=== PATIENT | male | born 1960 | race Caucasian/White ===

== ENCOUNTER 2021-07-17 17:37 | Emergency (ER) | payer SELFPAY ==
[~2021-07-17] VITALS: Ht 177.8 cm; Wt 86.2 kg
[~2021-07-17 17:37] MED LIST: ALPR1T PO; ASP325T PO; ASPI-84 PO; ATOR10TA PO; ATOR40TA PO; CITA20TA4 PO; CLON1TAB2 PO; CLON2TAB3 PO; CLOP75TA PO; DICL50TA6 PO; HYDR-2890 PO; HYDR50TA76 PO; IBUP-15 PO; METO25TA2 PO; TEMA30CA PO; TRM50T PO; [UNRECOGNIZED DRUG - CODE] PO
[2021-07-17] MEDS ORDERED: NS IV 1000 ML 1,000 ML IV SCH (19:00)
--- NOTE | 2021-07-17 19:04 | ED General ---
General Chief Complaint: General Problems/Pain Stated Complaint: WEAK, DIZZY,ITCHING, BACK PAIN, HAS STOPED DRINKIN History of Present Illness Date Seen by Provider: Jul 17, 2021 Time Seen by Provider: 18:30 Initial Comments 61 year old male, moved here from [place] 2 weeks ago. He was told in [place] that he had renal failure, so he decided to move back to [place] to be near family. No PCP here. Drank 1 point of bourbon daily for the last 2-3 years, stopped abruptly 07/09/21. Has not gone to rehab or had medical care to assist with withdrawals. He also reports no BM in 3 days, denies abdominal pain. Main complaint is vertigo, syncopal events, falls, neck pain without radicular complaints in arms. Unsure of his last tetanus. Superficial abrasion to right ear, from fall 1 week ago. No headache, nausea, vomiting, seizure, or other complaints. Has received the Moderna Vaccines and Booster, and flu shot. Timing/Duration: 1 Week Severity: Mild Associated Systoms: No Chest Pain, No Cough, No Diaphoresis, No Fever/Chills, No Headaches, No Loss of Appetite; Malaise; No Nausea/Vomiting, No Rash, No Seizure, No Shortness of Air; Syncope, Weakness Allergies and Home Medications Allergies Coded Allergies: No Known Drug Allergies (Unverified , 03/12/11) Patient Home Medication List Home Medication List Reviewed: Yes Atorvastatin Calcium (Lipitor 40MG) 40 Mg Tablet, 40 MG PO DAILY, (Reported) Entered as Reported by: TYRON ACUÑA on 10/13/11 170 Clonazepam (Clonazepam) 2 Mg Tablet, 1 EACH PO TID, (Reported) Entered as Reported by: CHERIE CUEVAS on 05/19/12 173 Clopidogrel Bisulfate (Plavix 75 Mg) 75 Mg Tablet, 75 MG PO DAILY, (Reported) Entered as Reported by: TYRON ACUÑA on 10/13/11 170 Diclofenac Sodium (Diclofenac Sodium) 50 Mg Tablet.dr, 50 MG PO BID, (Reported) Entered as Reported by: TYRON ACUÑA on 10/13/11 170 Hydrocodone Bit/Acetaminophen (Hydrocodon-Acetaminophn 10-325) 1 Each Tablet, 1 EACH PO NEEDED Prescribed by: NELLI ELMORE on 05/19/12 1842 Levodopa/Carbidopa (Sinemet 10/) 1 Ea Tab, 1 TAB PO HS, (Reported) Entered as Reported by: TYRON ACUÑA on 10/13/11 1706 Review of Systems Review of Systems Constitutional: see HPI, weakness EENTM: see HPI, no symptoms reported Respiratory: no symptoms reported, see HPI; No cough Cardiovascular: no symptoms reported, see HPI; No chest pain Gastrointestinal: no symptoms reported, see HPI Genitourinary: no symptoms reported, see HPI Musculoskeletal: see HPI, neck pain Skin: no symptoms reported, see HPI All Other Systems Reviewed Negative Unless Noted: Yes Past Jiihuwd-Ytiejc-Qyjckz Hx Past Medical History Reproductive Disorders: No Family Medical History Reviewed Nursing Family Hx Physical Exam Vital Signs Vital Signs - First Documented 07/17/21 18:25 Temp 36.4 Pulse 57 Resp 20 B/P (MAP) 167/82 (110) Pulse Ox 100 O2 Delivery Room Air Capillary Refill : Height, Weight, BMI Height: '" Weight: lbs. oz. kg; BMI Method:Stated General Appearance: No Apparent Distress, WD/WN Eyes: Bilateral Eye Normal Inspection, Bilateral Eye PERRL, Bilateral Eye EOMI HEENT: PERRL/EOMI, TMs Normal, Normal ENT Inspection, Pharynx Normal, Other (superficial abrasian to left ear, no active blooding, discharge or pain. 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 Norm as Tested Skin: Normal Color, Warm/Dry Progress/Results/Core Measures Suspected Sepsis SIRS Temperature: Pulse: Respiratory Rate: Laboratory Tests 07/17/21 18:40: White Blood Count 8.5 Blood Pressure / Mean: Laboratory Tests 07/17/21 18:40: Creatinine 1.08, Platelet Count 333, Total Bilirubin 0.6 Results/Orders Lab Results Laboratory Tests Test 07/17/21 18:40 07/17/21 19:18 Range/Units White Blood Count 8.5 4.3-11.0 10^3/uL Red Blood Count 4.45 4.30-5.52 10^6/uL Hemoglobin 14.2 13.3-17.7 g/dL Hematocrit 40 40-54 % Mean Corpuscular Volume 91 80-99 fL Mean Corpuscular Hemoglobin 32 25-34 pg Mean Corpuscular Hemoglobin Concent 35 32-36 g/dL Red Cell Distribution Width 12.2 10.0-14.5 % Platelet Count 333 130-400 10^3/uL Mean Platelet Volume 10.1 9.0-12.2 fL Immature Granulocyte % (Auto) 0 % Neutrophils (%) (Auto) 51 42-75 % Lymphocytes (%) (Auto) 30 12-44 % Monocytes (%) (Auto) 11 0-12 % Eosinophils (%) (Auto) 8 0-10 % Basophils (%) (Auto) 0 0-10 % Neutrophils # (Auto) 4.3 1.8-7.8 10^3/uL Lymphocytes # (Auto) 2.6 1.0-4.0 10^3/uL Monocytes # (Auto) 0.9 0.0-1.0 10^3/uL Eosinophils # (Auto) 0.7 H 0.0-0.3 10^3/uL Basophils # (Auto) 0.0 0.0-0.1 10^3/uL Immature Granulocyte # (Auto) 0.0 0.0-0.1 10^3/uL Sodium Level 138 135-145 MMOL/L Potassium Level 3.0 L 3.6-5.0 MMOL/L Chloride Level 102 98-107 MMOL/L Carbon Dioxide Level 23 21-32 MMOL/L Anion Gap 13 5-14 MMOL/L Blood Urea Nitrogen 12 7-18 MG/DL Creatinine 1.08 0.60-1.30 MG/DL Estimat Glomerular Filtration Rate 78 BUN/Creatinine Ratio 11 Glucose Level 117 H 70-105 MG/DL Calcium Level 9.7 8.5-10.1 MG/DL Corrected Calcium 9.5 8.5-10.1 MG/DL Total Bilirubin 0.6 0.1-1.0 MG/DL Aspartate Amino Transf (AST/SGOT) 38 H 5-34 U/L Alanine Aminotransferase (ALT/SGPT) 55 0-55 U/L Alkaline Phosphatase 114 40-136 U/L Total Protein 7.7 6.4-8.2 GM/DL Albumin 4.2 3.2-4.5 GM/DL Serum Alcohol < 10 <10 MG/DL Urine Color YELLOW Urine Clarity CLEAR Urine pH 6.0 5-9 Urine Specific [place] 1.020 1.016-1.022 Urine Protein NEGATIVE NEGATIVE Urine Glucose (UA) NEGATIVE NEGATIVE Urine Ketones NEGATIVE NEGATIVE Urine Nitrite NEGATIVE NEGATIVE Urine Bilirubin NEGATIVE NEGATIVE Urine Urobilinogen 1.0 < = 1.0 MG/DL Urine Leukocyte Esterase NEGATIVE NEGATIVE Urine RBC (Auto) NEGATIVE NEGATIVE Urine RBC NONE /HPF Urine WBC 0-2 /HPF Urine Crystals PRESENT H /LPF Urine Amorphous Sediment RARE KEVAN URATES H /LPF Urine Bacteria TRACE /HPF Urine Casts NONE /LPF Urine Mucus MODERATE H /LPF Urine Culture Indicated NO Urine Opiates Screen NEGATIVE NEGATIVE Urine Oxycodone Screen NEGATIVE NEGATIVE Urine Methadone Screen NEGATIVE NEGATIVE Urine Propoxyphene Screen NEGATIVE NEGATIVE Urine Barbiturates Screen POSITIVE H NEGATIVE Ur Tricyclic Antidepressants Screen NEGATIVE NEGATIVE Urine Phencyclidine Screen NEGATIVE NEGATIVE Urine Amphetamines Screen POSITIVE H NEGATIVE Urine Methamphetamines Screen POSITIVE H NEGATIVE Urine Benzodiazepines Screen NEGATIVE NEGATIVE Urine Cocaine Screen NEGATIVE NEGATIVE Urine Cannabinoids Screen POSITIVE H NEGATIVE My Orders Orders - 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 Cbc With Automated Diff (07/17/21 18:43) Comprehensive Metabolic Panel (07/17/21 18:43) Ua Culture If Indicated (07/17/21 18:43) Ct Head/Cervical Spine Wo (07/17/21 18:56) Alcohol (07/17/21 18:56) Drug Screen Stat (Urine) (07/17/21 18:56) Ed Iv/Invasive Line Start (07/17/21 18:56) Ns Iv 1000 Ml (Sodium Chloride 0.9%) (07/17/21 19:00) Ekg Tracing (07/17/21 19:08) Dipht,Pertuss(Acell),Tet Adult (Boostrix (07/17/21 19:30) Potassium Chloride (Tablet) (Klor Con Ta (07/17/21 19:53) Medications Given in ED Current Medications Medications Dose Ordered Sig/Papito Route Start Time Stop Time Status Last Admin Dose Admin Diphtheria/ Tetanus/Acell Pertussis 0.5 ml ONCE ONCE IM 07/17/21 19:30 07/17/21 19:31 DC 07/17/21 20:25 0.5 ML Vital Signs/I&O 07/17/21 07/17/21 18:25 20:32 Temp 36.4 Pulse 57 59 Resp 20 20 B/P (MAP) 167/82 (110) 148/80 Pulse Ox 100 100 O2 Delivery Room Air Room Air Capillary Refill : ECG Initial ECG Impression Date: Jul 17, 2021 Initial ECG Impression Time: 19:07 Initial ECG Rate: 53 Initial ECG Rhythm: Normal Sinus Initial ECG Intervals: Normal Initial ECG Intervals GA 196, QRSD 97, QT 480, QTc 451 [place] P 48, QRS 7, T Initial ECG Impression: Normal Diagnostic Imaging Diagonstic Imaging: CT Plain Films/CT/US/NM/MRI: c-spine, head Comments NAME: [facility] REC#: [id number] PT STATUS: REG ER : 1960 PHYSICIAN: MYA MALLOY ADMIT DATE: 07/17/21/ER Draft Date of Exam:07/17/21 CT HEAD/CERVICAL SPINE WO PROCEDURE: CT head and CT cervical spine without contrast. TECHNIQUE: Multiple contiguous axial images were obtained through the brain and cervical spine without the use of intravenous contrast. Sagittal and coronal reformations through the cervical spine were then performed. Auto Exposure Controls were utilized during the CT exam to meet ALARA standards for radiation dose reduction. INDICATION: Fall, head and neck injury, headache. COMPARISON: 05/19/2012 CT HEAD: The ventricles are normal in size, shape and position. There is no midline shift or mass effect. There is no hemorrhage or evidence of acute ischemia. No extra-axial fluid collection or mass is seen. There was no skull fracture. The paranasal sinuses and mastoids are clear. IMPRESSION: 1. Negative CT head CT CERVICAL SPINE: Alignment is normal. There is no subluxation or fracture. Moderate degenerative changes are present. The central canal is patent. The soft tissues are unremarkable. IMPRESSION: 1. No traumatic malalignment or fracture. Dictated on workstation # [id number] Reviewed: Reviewed by Me Departure Impression Primary Impression: Fall Qualified Codes: W19.XXXA - Unspecified fall, initial encounter Additional Impression: Alcohol withdrawal Qualified Codes: F10.239 - Alcohol dependence with withdrawal, unspecified Disposition: HOME, SELF-CARE Condition: Improved Departure-Patient Inst. Decision time for Depature: 20:15 Referrals: RANDEE HODGES MD (PCP) Primary Care Physician [facility]/TOM (Family) Primary Care Physician Patient Instructions: Alcohol Withdrawal (DC) Add. Discharge Instructions: Set up appointment with Dr. Brewer at [facility]. Continue to increase hydration with Gatorade and water. Eat 1 banana daily. Use cane for ambulation to prevent falls. Consider going to AA, local meetings daily. [facility] has a daily meeting. Return to the emergency department for new, health problems. All discharge instructions reviewed with patient and/or family. Voiced understanding. MYA MALLOY Jul 17, 2021 19:04
[2021-07-17 19:13] LABS: BASOPHILS % (AUTO) 0 % (0-10); EOSINOPHILS # (AUTO) 0.7 10^3/uL (0.0-0.3); EOSINOPHILS % (AUTO) 8 % (0-10); HEMATOCRIT 40 % (40-54); HEMOGLOBIN 14.2 g/dL (13.3-17.7); LYMPHOCYTES # (AUTO) 2.6 10^3/uL (1.0-4.0); LYMPHOCYTES % (AUTO) 30 % (12-44); MEAN CORPUSCULAR HEMOGLOBIN 32 pg (25-34); MEAN CORPUSCULAR HGB CONC 35 g/dL (32-36); MEAN CORPUSCULAR VOLUME 91 fL (80-99); MEAN PLATELET VOLUME 10.1 fL (9.0-12.2); MONOCYTES # (AUTO) 0.9 10^3/uL (0.0-1.0); MONOCYTES % (AUTO) 11 % (0-12); NEUTROPHILS # (AUTO) 4.3 10^3/uL (1.8-7.8); NEUTROPHILS % (AUTO) 51 % (42-75); PLATELET COUNT 333 10^3/uL (130-400); WHITE BLOOD COUNT 8.5 10^3/uL (4.3-11.0)
[2021-07-17 19:14] LABS: ALBUMIN 4.2 GM/DL (3.2-4.5)
[2021-07-17 19:15] LABS: CALCIUM 9.7 MG/DL (8.5-10.1)
[2021-07-17 19:16] LABS: TOTAL PROTEIN 7.7 GM/DL (6.4-8.2)
--- NOTE | 2021-07-17 19:16 | Diagnostic Imaging Report ---
PROCEDURE: CT head and CT cervical spine without contrast. TECHNIQUE: Multiple contiguous axial images were obtained through the brain and cervical spine without the use of intravenous contrast. Sagittal and coronal reformations through the cervical spine were then performed. Auto Exposure Controls were utilized during the CT exam to meet ALARA standards for radiation dose reduction. INDICATION: Fall, head and neck injury, headache. COMPARISON: 05/19/2012 CT HEAD: The ventricles are normal in size, shape and position. There is no midline shift or mass effect. There is no hemorrhage or evidence of acute ischemia. No extra-axial fluid collection or mass is seen. There was no skull fracture. The paranasal sinuses and mastoids are clear. IMPRESSION: 1. Negative CT head CT CERVICAL SPINE: Alignment is normal. There is no subluxation or fracture. Moderate degenerative changes are present. The central canal is patent. The soft tissues are unremarkable. IMPRESSION: 1. No traumatic malalignment or fracture. Dictated by: Dictated on workstation # [id number]
[2021-07-17 19:18] LABS: BILIRUBIN,TOTAL 0.6 MG/DL (0.1-1.0)
[2021-07-17 19:20] LABS: CREATININE SERUM 1.08 MG/DL (0.60-1.30)
[2021-07-17 19:22] LABS: BILIRUBIN,URINE NEGATIVE (NEGATIVE); CLARITY,URINE CLEAR; COLOR,URINE YELLOW; GLUCOSE, URINE (UA) NEGATIVE (NEGATIVE); KETONES,URINE NEGATIVE (NEGATIVE); LEUKOCYTE ESTERASE ,URINE NEGATIVE (NEGATIVE); NITRITE,URINE NEGATIVE (NEGATIVE); PROTEIN,URINE NEGATIVE (NEGATIVE)
[2021-07-17] MEDS ORDERED: TETANUS,DIPTH,PERTUSS P/F (BOOSTRIX) 0.5 ML VIAL IM ONE (19:30)
[2021-07-17 19:51] LABS: AMORPHOUS SEDIMENT,UR RARE AMOR URATES /LPF; BACTERIA,URINE TRACE /HPF; WBC,URINE 0-2 /HPF
[2021-07-17] MEDS ORDERED: KCL 10 MEQ TAB (MICRO K) PO STA (19:53)
[2021-07-17 20:00] LABS: AMPHETAMINE SCREEN, URINE POSITIVE (NEGATIVE); BARBITURATE SCREEN URINE POSITIVE (NEGATIVE); BENZODIAZEPINES SCREEN URINE NEGATIVE (NEGATIVE); CANNABINOID SCREEN, URINE POSITIVE (NEGATIVE); COCAINE SCREEN URINE NEGATIVE (NEGATIVE); METHADONE STAT NEGATIVE (NEGATIVE); METHAMPHETAMINE SCREEN URINE S POSITIVE (NEGATIVE); OPIATE SCREEN URINE NEGATIVE (NEGATIVE); OXYCODONE STAT NEGATIVE (NEGATIVE); PROPOXYPHENE STAT NEGATIVE (NEGATIVE); TRICYCLIC ANTIDEPRESSANTS SCRE NEGATIVE (NEGATIVE)
[2021-07-17 20:32] VITALS: BP 148/80
== END 2021-07-17 20:32 | disposition home or self-care (01) ==
LOC: EDUNIT# 17:37 → ER 17:46
DX: S00.412A Abrasion of left ear, initial encounter (principal); F10.239 Alcohol dependence with withdrawal, unspecified; Z23 Encounter for immunization; Z79.01 Long term (current) use of anticoagulants; X58.XXXA Exposure to other specified factors, initial encounter
CPT/HCPCS: 70450; 72125; 80053; 80306; 81000; 85025; 90471; 93005; 96360; 99284; G0480; 36415; 80320; 90715

== ENCOUNTER 2021-11-30 15:12 | Emergency (ER) | payer SELFPAY ==
[~2021-11-30] VITALS: Ht 177 cm; Wt 74.8 kg
[2021-11-30] MEDS ORDERED: NS IV 1000 ML 1,000 ML IV STA (15:37)
--- NOTE | 2021-11-30 15:38 | ED Chest Pain ---
General Chief Complaint: COVID19 Suspect/Confirmed Stated Complaint: COVID POSITIVE, SOB, CHEST PAIN Source: patient Exam Limitations: no limitations History of Present Illness Date Seen by Provider: Nov 30, 2021 Time Seen by Provider: 15:35 Initial Comments Patient is a 61-year-old male with a history of coronary artery disease, CHF, hypertension who presents to ED for chest pain, cough, shortness of breath and flulike symptoms. Patient states he was diagnosed with COVID on November 21. Was started on antiviral which he cannot recall the name. Currently taking the medication. Patient states he started having flulike symptoms on 21 November. Started feeling better but became worse over the past 3 days with intermittent chest pain with cough. Chest pain is described as sharp without radiation. Reports mucus sputum production with the cough. Denies history of COPD, asthma. Not currently on blood thinners. No recent travels or surgeries. Denies of any fever. Still having fatigue but the chills have improved. Few episodes of vomiting today without any diarrhea. Denies headache, visual changes, sore throat, ear pain, abdominal pain, denies leg swelling Allergies and Home Medications Allergies Coded Allergies: No Known Drug Allergies (Unverified , 03/12/11) Patient Home Medication List Home Medication List Reviewed: Yes Atorvastatin Calcium (Lipitor 40MG) 40 Mg Tablet, 40 MG PO DAILY, (Reported) Entered as Reported by: TYRON ACUÑA on 10/13/111705 Clonazepam (Clonazepam) 2 Mg Tablet, 1 EACH PO TID, (Reported) Entered as Reported by: CHERIE CUEVAS on 05/19/12 173 Clopidogrel Bisulfate (Plavix 75 Mg) 75 Mg Tablet, 75 MG PO DAILY, (Reported) Entered as Reported by: TYRON ACUÑA on 10/13/111705 Diclofenac Sodium (Diclofenac Sodium) 50 Mg Tablet.dr, 50 MG PO BID, (Reported) Entered as Reported by: TYRON ACUÑA on 10/13/111705 Hydrocodone Bit/Acetaminophen (Hydrocodon-Acetaminophn 10-325) 1 Each Tablet, 1 EACH PO NEEDED Prescribed by: NELLI ELMORE on 05/19/12 1842 Levodopa/Carbidopa (Sinemet 10/100) 1 Ea Tab, 1 TAB PO HS, (Reported) Entered as Reported by: TYRON ACUÑA on 10/13/11 1706 Review of Systems Review of Systems Constitutional: chills, malaise, weakness EENTM: No Blurred Vision, No Double Vision, No Eye Pain Respiratory: Cough, Shortness of Air Cardiovascular: Chest Pain; Denies Edema, Denies Irregular Heart Rate Gastrointestinal: Denies Abdominal Pain, Denies Diarrhea; Vomiting Musculoskeletal: No back pain, No joint pain Skin: No change in color, No change in hair/nails All Other Systems Reviewed Negative Unless Noted: Yes Past Cjsoulc-Jlopfw-Tzjqbb Hx Immunizations Up To Date First/Initial COVID19 Vaccinat: 2020 Second COVID19 Vaccination Corey: 2020 Third COVID19 Vaccination Date: 2020 Past Medical History Surgery/Hospitalization HX: HX RENAL FAILURE Reproductive Disorders: No Physical Exam Vital Signs Vital Signs - First Documented 11/30/21 15:27 Temp 36.6 Pulse 84 Resp 20 B/P (MAP) 190/93 (125) Pulse Ox 97 O2 Delivery Room Air Capillary Refill : Height, Weight, BMI Height: '" Weight: lbs. oz. kg; 27.00 BMI Method:Stated General Appearance: No Apparent Distress, WD/WN HEENT: PERRL/EOMI, TMs Normal, Normal ENT Inspection, Pharynx Normal Neck: Full Range of Motion, Normal Inspection, Non Tender, Supple Respiratory: Chest Non Tender, Lungs Clear, Normal Breath Sounds, No Accessory Muscle Use, No Respiratory Distress Cardiovascular: Regular Rate, Rhythm, No Edema, No Gallop, No JVD, No Murmur Gastrointestinal: Normal Bowel Sounds, No Organomegaly, No Pulsatile Mass, Non Tender Extremity: Normal Capillary Refill, Normal Inspection, Normal Range of Motion, Non Tender Neurologic/Psychiatric: Alert, Oriented x3, No Motor/Sensory Deficits, Normal 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, 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 Skin: Normal Color, Warm/Dry Progress/Results/Core Measures Results/Orders Lab Results Laboratory Tests Test 11/30/21 15:35 Range/Units White Blood Count 9.3 4.3-11.0 10^3/uL Red Blood Count 4.33 4.30-5.52 10^6/uL Hemoglobin 13.5 13.3-17.7 g/dL Hematocrit 38 L 40-54 % Mean Corpuscular Volume 88 80-99 fL Mean Corpuscular Hemoglobin 31 25-34 pg Mean Corpuscular Hemoglobin Concent 36 32-36 g/dL Red Cell Distribution Width 13.2 10.0-14.5 % Platelet Count 431 H 130-400 10^3/uL Mean Platelet Volume 9.1 9.0-12.2 fL Immature Granulocyte % (Auto) 0 % Neutrophils (%) (Auto) 60 42-75 % Lymphocytes (%) (Auto) 27 12-44 % Monocytes (%) (Auto) 11 0-12 % Eosinophils (%) (Auto) 1 0-10 % Basophils (%) (Auto) 0 0-10 % Neutrophils # (Auto) 5.6 1.8-7.8 X 10^3 Lymphocytes # (Auto) 2.5 1.0-4.0 X 10^3 Monocytes # (Auto) 1.0 0.0-1.0 X 10^3 Eosinophils # (Auto) 0.1 0.0-0.3 10^3/uL Basophils # (Auto) 0.0 0.0-0.1 10^3/uL Immature Granulocyte # (Auto) 0.0 0.0-0.1 10^3/uL D-Dimer 0.52 H 0.00-0.49 UG/ML Sodium Level 137 135-145 MMOL/L Potassium Level 3.5 L 3.6-5.0 MMOL/L Chloride Level 101 98-107 MMOL/L Carbon Dioxide Level 21 21-32 MMOL/L Anion Gap 15 H 5-14 MMOL/L Blood Urea Nitrogen 22 H 7-18 MG/DL Creatinine 1.11 0.60-1.30 MG/DL Estimat Glomerular Filtration Rate 76 BUN/Creatinine Ratio 20 Glucose Level 197 H 70-105 MG/DL Calcium Level 9.4 8.5-10.1 MG/DL Corrected Calcium 9.0 8.5-10.1 MG/DL Magnesium Level 2.1 1.6-2.4 MG/DL Total Bilirubin 1.1 H 0.1-1.0 MG/DL Aspartate Amino Transf (AST/SGOT) 53 H 5-34 U/L Alanine Aminotransferase (ALT/SGPT) 55 0-55 U/L Alkaline Phosphatase 137 H 40-136 U/L Troponin I < 0.028 <0.028 NG/ML B-Type Natriuretic Peptide < 10.0 <100.0 PG/ML Total Protein 7.9 6.4-8.2 GM/DL Albumin 4.5 3.2-4.5 GM/DL Lipase 15 8-78 U/L My Orders Orders - SE LEVIN PA Ekg Tracing (11/30/21 15:22) Cbc With Automated Diff (11/30/21 15:32) Comprehensive Metabolic Panel (11/30/21 15:32) Lipase (11/30/21 15:32) Bnp Amelie (11/30/21 15:32) Troponin I [place] (11/30/21 15:32) Magnesium (11/30/21 15:32) Chest 1 View, Ap/Pa Only (11/30/21 15:32) Fibrin Degradation Products (11/30/21 15:32) Iv/Invasive Line Insertion .IV start (11/30/21 15:32) Ns Iv 1000 Ml (Sodium Chloride 0.9%) (11/30/21 15:37) Ct Angio Chest W (11/30/21 16:14) Iohexol Injection (Omnipaque 350 Mg/Ml 1 (11/30/21 16:30) Received Contrast (Hold Metformin- Contr (11/30/21 16:30) Ns (Ivpb) (Sodium Chloride 0.9% Ivpb Bag (11/30/21 16:30) Medications Given in ED Current Medications Medications Dose Ordered Sig/Papito Route Start Time Stop Time Status Last Admin Dose Admin Iohexol 100 ml ONCE ONCE IV 11/30/21 16:30 11/30/21 16:31 DC 11/30/21 16:46 77 ML Sodium Chloride 100 ml ONCE ONCE IV 11/30/21 16:30 11/30/21 16:31 DC 11/30/21 16:46 80 ML Vital Signs/I&O 11/30/21 11/30/21 11/30/21 11/30/21 15:27 17:12 17:12 17:39 Temp 36.6 Pulse 84 72 82 Resp 20 20 18 B/P (MAP) 190/93 (125) 169/103 162/76 Pulse Ox 97 95 95 97 O2 Delivery Room Air Room Air Room Air Room Air Initial ECG Comparisson: No Previous ECG Available Comment Sinus rhythm with occasional ventricular premature complexes, 75 bpm, QRS duration 99 MS, QTc 436 MS Departure Communication (PCP) Patient was diagnosed with COVID on the . Currently on antiviral. Patient reports chest pain, shortness of breath and cough. Due to recent COVID rule out any pulmonary embolism versus pneumonia versus myocarditis, pericarditis. EKG without evidence of ST elevation depression. Patient troponin was negative with a negative BNP. Elevated D-dimer 0.52. Not currently on anticoagulant. CT angio of the chest was negative for PE, pneumonia. Lab work was otherwise unremarkable. Likely slightly dehydrated. States he has been living in his vehicle for the past 2 or 3 days. Concerning for not eating or drinking as much. Patient was given a liter of fluid with significant improvement of his symptoms. Patient told staff member he did drug use meth a few days ago which may be associated to some of his symptoms however due to his history of coronary artery disease cardiac work-up was needed. Patient states he had cardiac catheterization 1 year ago which was unremarkable. Not able to find this information. I do believe patient's symptoms are mostly likely due to his current viral infection which she tested positive for COVID. Continue with antiviral. Recommend staying hydrated. He is not tachycardic or hypoxic needing oxygen at this time. If any worsening symptoms return back to ED for further evaluation. Impression Primary Impression: Chest pain Disposition: HOME, SELF-CARE Condition: Stable Departure-Patient Inst. Decision time for Depature: 17:25 Referrals: [facility]/ROCIO NGUYEN MD NO,LOCAL PHYSICIAN (PCP) Primary Care Physician Patient Instructions: Chest Pain, Adult ED Add. Discharge Instructions: Continue monitoring symptoms at home. Recommend hydration. If any worsening symptoms return back to ED for further evaluation. Outpatient follow-up with cardiology for further evaluation of chest pain. If any worsening pain to return back to ED for further evaluation All discharge instructions reviewed with patient and/or family. Voiced understanding. SE LEVIN Nov 30, 2021 15:38
[2021-11-30 15:47] LABS: BASOPHILS % (AUTO) 0 % (0-10); EOSINOPHILS # (AUTO) 0.1 10^3/uL (0.0-0.3); EOSINOPHILS % (AUTO) 1 % (0-10); HEMATOCRIT 38 % (40-54); HEMOGLOBIN 13.5 g/dL (13.3-17.7); LYMPHOCYTES # (AUTO) 2.5 X 10^3 (1.0-4.0); LYMPHOCYTES % (AUTO) 27 % (12-44); MEAN CORPUSCULAR HEMOGLOBIN 31 pg (25-34); MEAN CORPUSCULAR HGB CONC 36 g/dL (32-36); MEAN CORPUSCULAR VOLUME 88 fL (80-99); MEAN PLATELET VOLUME 9.1 fL (9.0-12.2); MONOCYTES % (AUTO) 11 % (0-12); NEUTROPHILS # (AUTO) 5.6 X 10^3 (1.8-7.8); NEUTROPHILS % (AUTO) 60 % (42-75); PLATELET COUNT 431 10^3/uL (130-400); WHITE BLOOD COUNT 9.3 10^3/uL (4.3-11.0)
[2021-11-30 15:56] LABS: ALBUMIN 4.5 GM/DL (3.2-4.5); CHLORIDE 101 MMOL/L (98-107); POTASSIUM 3.5 MMOL/L (3.6-5.0); SODIUM 137 MMOL/L (135-145)
[2021-11-30 15:57] LABS: CALCIUM 9.4 MG/DL (8.5-10.1)
[2021-11-30 15:58] LABS: GLUCOSE 197 MG/DL (70-105)
[2021-11-30 15:59] LABS: TOTAL PROTEIN 7.9 GM/DL (6.4-8.2)
[2021-11-30 16:00] LABS: BILIRUBIN,TOTAL 1.1 MG/DL (0.1-1.0); CARBON DIOXIDE 21 MMOL/L (21-32)
[2021-11-30 16:02] LABS: ALKALINE PHOSPHATASE 137 U/L (40-136); CREATININE SERUM 1.11 MG/DL (0.60-1.30); GFR ESTIMATED 76
[2021-11-30 16:03] LABS: BUN/CREATININE RATIO 20
[2021-11-30 16:05] LABS: ALANINE AMINOTRANSFERASE 55 U/L (0-55); MAGNESIUM 2.1 MG/DL (1.6-2.4)
[2021-11-30 16:07] LABS: LIPASE 15 U/L (8-78)
--- NOTE | 2021-11-30 16:13 | Diagnostic Imaging Report ---
INDICATION: Chest pain Single AP view of the chest is obtained with comparison made to study of 01/15/2012. FINDINGS: Heart size and pulmonary vascularity are within normal limits, and the lungs are clear, bilaterally. Right coronary artery stent is noted. IMPRESSION: Unremarkable chest. Dictated by: Dictated on workstation # [id number]
[2021-11-30] MEDS ORDERED: HOLD METFORMIN - RECEIVED CONTRAST 20 ML VIAL IV SCH (16:30)
[2021-11-30] MEDS ORDERED: IOHEXOL 350 MG/ML 100 ML (OMNIPAQUE 350) VIAL IV ONE (16:30)
[2021-11-30] MEDS ORDERED: NS 100 ML (IVPB) BAG IV ONE (16:30)
--- NOTE | 2021-11-30 16:58 | Diagnostic Imaging Report ---
Clinical Indication: Patient with chest pain and shortness of breath. COVID positive since 11/21. Exam: CT angiogram of the chest performed with 77 cc Omnipaque 350 IV contrast. Coronal and oblique MIP images of the vasculature were created to better evaluate anatomy. Auto Exposure Controls were utilized during the CT exam to meet ALARA standards for radiation dose reduction. Comparison: None. Findings: There is dense contrast within the superior vena cava, skull streak artifact obscuring some portions of the mediastinum and pulmonary arteries. There is no evidence of pulmonary embolism. There is no thoracic aortic dissection or aneurysm. There is motion artifact limiting evaluation of lung parenchyma. Lungs are clear. There is no pleural effusion or pneumothorax. There is no significant mediastinal or hilar lymphadenopathy. There is no axillary lymphadenopathy. Are clear. There is no pleural effusion pneumothorax. There is no mediastinal or axillary lymphadenopathy. Mediastinal structures and heart shows no significant abnormality. The visualized portions of the upper abdominal structures are unremarkable. There are degenerative spurs involving the thoracic spine. Impression: 1: There is evidence of pulmonary embolism. There is no thoracic aortic aneurysm or dissection. 2: Lungs are clear. There is no pleural effusion or pneumothorax. Dictated by: Dictated on workstation # [id number]
[2021-11-30 17:39] VITALS: BP 162/76
== END 2021-11-30 17:43 | disposition home or self-care (01) ==
LOC: EDUNIT# 15:12 → ER 15:15
DX: R07.9 Chest pain, unspecified (principal); U07.1 COVID-19; R79.1 Abnormal coagulation profile; Z98.61 Coronary angioplasty status; Z73.0 Burn-out; Z79.899 Other long term (current) drug therapy
CPT/HCPCS: 36415; 71045; 71275; 80053; 83690; 83735; 83880; 84484; 85025; 85379; 93005; 94640